=== PATIENT | female | born 1975 | race Caucasian/White ===

== ENCOUNTER → 2018-01-18 11:30 | Outpatient (CLI) | payer OTHER, SELFPAY ==
[2018-01-23 14:26] LABS: HPV Reflexed? NOT INDICATED
== END ==
PROVIDERS: Visit Provider Obstetrics & Gynecology
DX: Z12.4 Encounter for screening for malignant neoplasm of cervix (principal)
CPT/HCPCS: 88175; G0145

== ENCOUNTER → 2020-03-26 09:00 | Outpatient (CLI) | payer OTHER, SELFPAY ==
[2020-04-02 16:23] LABS: HPV Reflexed? NOT INDICATED
== END ==
PROVIDERS: Visit Provider Obstetrics & Gynecology
DX: Z12.4 Encounter for screening for malignant neoplasm of cervix (principal)
CPT/HCPCS: 88175; G0145